=== PATIENT | male | born 1995 | race Caucasian/White ===

== ENCOUNTER 2022-07-02 13:51 | Emergency (ER) | payer SELFPAY ==
[2022-07-02 13:53] VITALS: BP 139/90; PULSE 110; RESP 16; TEMP 35.9; O2SAT 100
[2022-07-02 15:14] VITALS: BMI 20.9
--- NOTE | 2022-07-02 15:15 | EX.ED.DYSGE1 ---
HPI History of Present Illness Chief Complaint: Dizziness Narrative Narrative: 26-year-old male presenting with concern for dehydration. He states has been drinking fluids but just has not eaten anything in 2 and half days. He does not know why. He does not feel ill. He states he does not have any medical problems. He states that before coming he started to feel cramping in his hands and in his back. At that point he became very nauseous and vomited. Since then has been able to drink Gatorade. Does not have any abdominal pain or chest pain. He is a little bit lightheaded. PFSH PFSH Medical History no medical history Home Medications NK 07/02/22 [History Last Taken Unknown] Allergy/AdvReac Type Severity Reaction Status Date / Time No Known Allergies Allergy Verified 07/02/22 13:51 Social History Smoking Status: Never smoker ROS ROS ED Constitutional Constitutional ED: Denies chills, fever(s) or sweats Eyes Eyes: Denies blurry vision or change in vision ENT ENT ED: Denies ear pain or sore throat Cardiovascular Cardiovascular: Denies chest pain, palpitations or racing heartbeat Respiratory/Chest Respiratory/Chest: Denies cough, dyspnea or sputum Gastrointestinal Gastrointestinal: Denies abdominal pain, constipation, diarrhea, nausea or vomiting Genitourinary Genitourinary ED: Denies dysuria, hematuria or urinary frequency Musculoskeletal Musculoskeletal: Reports other Details: Muscle spasms ; Denies arthralgias or neck pain Integumentary Denies abscess, Abrasions or rash Neurologic Neurologic: Denies headache(s), paresthesias or weakness Psychiatric Psychiatric: Denies anxiety, depression, suicidal ideation or suicidal thoughts Endocrine Endocrinology: Denies polydipsia or polyuria EXAM Physical Exam Const Vital Signs: 07/02/22 13:53 07/02/22 15:15 07/02/22 15:19 Temperature 96.7 F L Temperature Source Temporal Pulse Rate 110 H Pulse Rate [Lying] 94 Pulse Rate [Sitting (for 1 minute prior to obtaining)] 98 Pulse Rate [Standing (for 1 minute prior to obtaining)] 119 H Respiratory Rate 16 Respiratory Effort Normal Non-Labored Respiratory Pattern Normal Blood Pressure 139/90 H Blood Pressure [Lying] 141/76 H Blood Pressure [Sitting (for 1 minute prior to obtaining)] 136/94 H Blood Pressure [Standing (for 1 minute prior to obtaining)] 131/106 H Blood Pressure Mean 106 Blood Pressure Mean [Lying] 97 Blood Pressure Mean [Sitting (for 1 minute prior to obtaining)] 108 Blood Pressure Mean [Standing (for 1 minute prior to obtaining)] 114 Pulse Ox 100 Oxygen Delivery Method Room Air 07/02/22 17:25 Temperature Temperature Source Pulse Rate Pulse Rate [Lying] Pulse Rate [Sitting (for 1 minute prior to obtaining)] Pulse Rate [Standing (for 1 minute prior to obtaining)] Respiratory Rate Respiratory Effort Respiratory Pattern Blood Pressure 120/64 Blood Pressure [Lying] Blood Pressure [Sitting (for 1 minute prior to obtaining)] Blood Pressure [Standing (for 1 minute prior to obtaining)] Blood Pressure Mean 82 Blood Pressure Mean [Lying] Blood Pressure Mean [Sitting (for 1 minute prior to obtaining)] Blood Pressure Mean [Standing (for 1 minute prior to obtaining)] Pulse Ox Oxygen Delivery Method Positive well nourished General Appearance ED: NAD; Negative for pallor HEENT Reports moist mucous membranes Eyes PERRL and EOMs intact bilaterally Resp normal respiratory effort and clear to auscultation bilaterally Cardio regular rate Rate: tachycardic GI normal to inspection, nondistended, normoactive bowel sounds Extremity normal to inspection General Extremety ED: Negative for edema or tenderness General Extremity: Negative for edema Neuro oriented x3 and CN's II-XII intact bilaterally Sensorium / Orientation: alert Psych mental status grossly normal Skin General Skin Exam: Negative for jaundice or pallor MDM MDM MDM Narrative Medical decision making narrative: Patient presenting with muscle spasms. He has not eaten in 2 and half days. He states he has been drinking fluids. Differential includes dehydration, electrolyte abnormalities. Orthostatic vitals will be obtained. CBC to assess white blood cell count, hemoglobin, platelets, differential. CMP to assess liver function, renal function, glucose, anion gap, electrolytes. Patient given 2 L of IV fluids. CBC shows a mild leukocytosis at 12.0. Hemoglobin hematocrit are stable. Platelets are normal. Creatinine is elevated at 1.32 today. GFR is normal. Patient given 2 L of IV fluids and on reevaluation he feels better. I recommended him that he eat and drink normally and not go days without eating. Stay hydrated. He acknowledged understanding of this. Discharged stable condition. Impression: 1. Dehydration 2. Muscle cramps Lab Data Attestation: I reviewed the patient's lab results. Labs: Laboratory Results - last 24 hr 07/02/22 07/02/22 15:25 15:25 WBC 12.0 H RBC 5.42 Hgb 15.7 Hct 46.6 MCV 86.0 MCH 29.0 MCHC 33.7 RDW Std Deviation 39.0 RDW Coeff of Barbie 12.6 Plt Count 271 MPV 10.2 Immature Gran % (Auto) 0.400 Neut % (Auto) 84.2 H Lymph % (Auto) 9.5 L [place] % (Auto) 5.3 Eos % (Auto) 0.3 Baso % (Auto) 0.3 Absolute Neuts (auto) 10.1 H Absolute Lymphs (auto) 1.14 Nucleated RBC % 0 Sodium 133 L Potassium 5.1 Chloride 99 Carbon Dioxide 24.0 Anion Gap 10 BUN 16 Creatinine 1.32 H Estim Creat Clear Calc 71.53 Est GFR (MDRD) Af Amer 83 Est GFR (MDRD) Non-Af 68 BUN/Creatinine Ratio 12.1 Glucose 100 Calcium 10.0 Total Bilirubin 1.20 H AST 55 H ALT 24 Alkaline Phosphatase 76 Total Protein 8.8 H Albumin 4.2 Globulin 4.6 H Albumin/Globulin Ratio 0.9 Discharge Plan Triage Chief Complaint: Dizziness ED Provider: Rishi Del Valle Dx/Rx/DC Orders Instructions: ED Dehydration (Adult), ED Hypotension, Orthostatic Prescriptions: No Action NK Primary Care Provider: Care Physician,No Primary Referrals: NOT,DEFINED [Non-Staff] - Disposition Disposition: Home, Self Care Discharge Date/Time: 07/02/22 18:01
[2022-07-02 15:19] VITALS: BP 131/106; BP 136/94; BP 141/76; PULSE 119; PULSE 94; PULSE 98
[2022-07-02] MEDS: 0.9% Normal Saline 1,000 ML 1000 ML IV ×2 (15:30→16:33)
[2022-07-02 15:34] LABS: Absolute Lymphocyte Count 1.14 X10^3/uL (0.83-4.51); Absolute Neutrophil Count 10.1 X10^3/uL (2.0-7.7); Basophil# 0.03 X10^3/uL; Basophil% 0.3 % (0-1); Eosinophil# 0.03 X10^3/uL; Eosinophils% 0.3 % (0-5); Hematocrit 46.6 % (40-54); Hemoglobin 15.7 g/dL (13.0-16.5); Lymphocyte # 1.14 X10^3/ul (0.83-4.51); Lymphocyte % 9.5 % (19-41); Mean Corp Hgb Conc 33.7 g/dL (32-36); Mean Platelet Vol. 10.2 fl (6.2-12.0); Monocyte# 0.63 X10^3/uL; Monocyte% 5.3 % (0-10); NRBC Flagged by Analyzer 0 % (0-5); Neutrophil # 10.08 X10^3/uL (2.7-7.7); Neutrophil % 84.2 % (47-70); Platelet Count 271 K/mm3 (150-450); RBC Distribution Width CV 12.6 % (11.6-14.6); Red Blood Count 5.42 M/mm3 (4.6-6.2)
[2022-07-02 15:55] LABS: ALB/GLOB Ratio 0.9 RATIO (0.9-2.4); AST(SGOT) 55 U/L (15-37); Alanine Aminotransfer ALT/SGPT 24 U/L (16-61); Albumin, Serum 4.2 g/dL (3.2-5.0); Alkaline Phosphatase 76 U/L (45-117); Anion Gap 10 (5-15); BUN 16 mg/dL (7-18); BUN/Creat Ratio 12.1 RATIO (10-20); Chloride 99 mmol/L (98-107); Creatinine, Serum 1.32 mg/dL (0.70-1.30); EST Glomerular Filtration Rate 68 mL/min (>60); Est Glom Filt Rate - Afr Amer 83 mL/min (>60); Estimated Creatinine Clearance 71.53 ml/min; Globulin 4.6 g/dL (2.2-4.2); Glucose 100 mg/dL (74-106); Potassium 5.1 mmol/L (3.5-5.1); Protein, Total 8.8 g/dL (6.4-8.2); Sodium Level 133 mmol/L (136-145)
[2022-07-02 17:25] VITALS: BP 120/64
== END 2022-07-02 18:01 | disposition home or self-care (01) ==
PROVIDERS: Emergency Provider Student in an Organized Health Care Education/Training Program; Visit Provider Student in an Organized Health Care Education/Training Program
DX: E86.0 Dehydration (principal); R25.2 Cramp and spasm
CPT/HCPCS: 80053; 85025; 99284; J7030; A4216

== ENCOUNTER 2024-06-08 04:54 | Emergency (ER) | payer SELFPAY ==
[2024-06-08 04:56] VITALS: BP 146/99; PULSE 105; RESP 20; TEMP 37.2; O2SAT 100; BMI 22.3
[2024-06-08 04:58] VITALS: BP 146/99; PULSE 102; RESP 20; TEMP 37.2; O2SAT 100
--- NOTE | 2024-06-08 05:08 | RAD_ITS ---
PROCEDURE: CHEST 1 VIEW (PORTABLE) 06/08/2024 REASON FOR EXAM: CHEST PAIN TECHNIQUE: Frontal view of the chest. COMPARISON: None. FINDINGS: The cardiac silhouette is within normal limits. No focal infiltrate or consolidation is seen within the lungs. There is no pneumothorax. There are no acute osseous abnormality is present. Deformity seen within the left clavicle likely due to old clavicular injury correlate clinically for site of pain. RAD/Chest 1 View (Portable) IMPRESSION: Left clavicular deformity likely due to old clavicle injury. If the patient is tender over the left clavicle acute injury can not be ruled out. Cross-sectional imaging may be helpful. No focal infiltrate or consolidation seen within the lungs. No pneumothorax. Reading Location: [id number]
--- NOTE | 2024-06-08 05:09 | EDS_ITS ---
HPI History of Present Illness Chief Complaint: Cold Sx Informant: patient Narrative Narrative: 28-year-old male presenting to the emergency room chief complaint of left-sided chest pain. Patient states that he has developed the sharp left-sided chest pain that is worse with movement and cough and touch. Feels better when he leans forward at times. Couple days ago he had some vomiting but it did not hurt him after he vomited. He states that he has been having some dental infections over the past 6 months but has been unable to see a dentist due to financial reasons. He states that they started hurting more yesterday. Today notes some swelling in his lymph nodes and wonders if he has developed some fluid in his chest as he wonders if the infection is spread down to his chest. Subjective fevers are noted. No diarrhea. PFSH [facility] Medical History Marijuana smoker Medical History no medical history Home Medications ?Medication ?Instructions ?Recorded ?Last Taken ?Type ibuprofen 600 mg tablet 600 mg PO Q6H PRN PRN pain # 20 06/08/24 Unknown Rx TABLETS penicillin V potassium 500 mg 500 mg PO 4X/DAY #28 tab s 06/08/24 Unknown Rx tablet Allergy/AdvReac Type Severity Reaction Status Date / Time No Known Allergies Allergy Verified 06/08/24 04:55 Family History no significant family his Surgical History no surgical history Social History Smoking Status: Current every day smoker tobacco type: e-cigarettes ROS ROS ED Constitutional Constitutional ED: Reports fever(s) and subjective; Denies chills or weight loss Eyes Eyes: Denies change in vision or diplopia ENT ENT ED: Reports other Details: Dental pain ; Denies ear pain, rhinorrhea or sore throat Cardiovascular Cardiovascular: Reports chest pain; Denies orthopnea, palpitations or racing heartbeat Respiratory/Chest Respiratory/Chest: Reports dyspnea; Denies cough or orthopnea Gastrointestinal Gastrointestinal: Reports vomiting; Denies abdominal pain, diarrhea or nausea Genitourinary Genitourinary ED: Denies dysuria, hematuria or urinary frequency Musculoskeletal Musculoskeletal: Denies arthralgias or myalgias Integumentary Denies abscess or rash Neurologic Neurologic: Denies headache(s) or weakness Psychiatric Psychiatric: Denies anxiety, depression, suicidal ideation or suicidal thoughts Endocrine Endocrinology: Denies polydipsia, polyphagia or polyuria Allergic/Immunologic Allergic/Immunologic ED: Denies mouth swelling, tongue swelling or urticaria EXAM Physical Exam Const Vital Signs: 06/08/24 04:56 06/08/24 04:58 06/08/24 04:58 Temperature 98.9 F 98.9 F Temperature Source Axillary Axillary Pulse Rate 105 H 102 H Respiratory Rate 20 H 20 H Respiratory Effort Short of Breath Labored Respiratory Pattern Tachypnea Blood Pressure 146/99 H 146/99 H Blood Pressure Mean 114 114 Pulse Ox 100 100 Oxygen Delivery Method Room Air Room Air 06/08/24 05:22 06/08/24 06:00 06/08/24 06:40 Temperature 98.5 F 98 F Temperature Source Oral Pulse Rate 86 73 84 Respiratory Rate 18 16 19 H Respiratory Effort Respiratory Pattern Blood Pressure 132/94 H 132/87 H 126/76 H Blood Pressure Mean 106 102 92 Pulse Ox 100 98 99 Oxygen Delivery Method Room Air Room Air Positive well nourished and well developed General Appearance ED: well developed HEENT Reports normocephalic, head/scalp atraumatic and moist mucous membranes HEENT Narrative: Multiple decayed teeth particularly in the molar region. There is no trismus no floor the mouth swelling. No obvious drainable dental abscess. No facial erythema or swelling. Eyes PERRL and EOMs intact bilaterally Neck no lymphadenopathy, supple and no JVD Chest Wall Chest Narrative: Tender palpation left lower anterior chest along the costochondral border Resp normal respiratory effort and clear to auscultation bilaterally Cardio regular rate, regular rhythm and no murmurs GI normal to inspection, nondistended, normoactive bowel sounds and non-tender Palpation: soft Back/Spine no CVA tenderness and normal ROM Extremity normal to inspection General Extremety ED: Negative for edema General Extremity: Negative for edema Neuro oriented x3 and CN's II-XII intact bilaterally Sensorium / Orientation: alert Motor Exam: strength 5/5 throughout Psych Mood & Affect: anxious and tearful; Negative for depressed Skin no rashes or lesions noted and no wounds MDM MDM MDM Narrative Medical decision making narrative: Differential diagnosis includes but not limited to dental abscess James's angina pneumonia pleural effusion acute coronary syndrome pulmonary embolism aortic dissection pleural effusion Patient's EKG shows a normal sinus rhythm at a rate of 90 bpm. White count is normal at 7.5 hemoglobin 14.6 platelet count 313. Normal D-dimer troponin less than 6 (greater then 8 hours of symptomology). Glucose noted to be 134. My independent interpretation a chest x-ray is no acute process. Clinically with the above workup and his physical exam I think is most likely chest wall pain. I can write for some penicillin and see if that helps his dental pain. Would recommend PCP establishment and follow-up as well as dentistry. History & Record Review Discussion w/independent historian: Patient Additional record(s) reviewed:: Prior ED visit and Prior labs Lab Data Attestation: I reviewed the patient's lab results. Labs: Laboratory Results - last 24 hr 06/08/24 05:20 WBC 7.5 RBC 5.05 Hgb 14.6 Hct 42.5 MCV 84.2 MCH 28.9 MCHC 34.4 RDW Std Deviation 38.1 RDW Coeff of Barbie 12.5 Plt Count 313 MPV 10.0 Immature Gran % (Auto) 0.300 Neut % (Auto) 62.5 Lymph % (Auto) 23.6 [place] % (Auto) 11.9 H Eos % (Auto) 1.3 Baso % (Auto) 0.4 Absolute Neuts (auto) 4.7 Absolute Lymphs (auto) 1.76 Nucleated RBC % 0 D-Dimer Quant (PE/DVT) 0.27 Sodium 135 Potassium 3.9 Chloride 98 Carbon Dioxide 22.3 Anion Gap 15 BUN 10 Creatinine 1.16 Estim Creat Clear Calc 85.21 Est GFR (MDRD) Non-Af 87 BUN/Creatinine Ratio 9.0 L Glucose 134 H Calcium 9.7 Troponin T High Sens < 6 Radiography Diagnostic Testing: Clinical Impression(s) from Imaging Studies Chest X-Ray 06/08/24 05:08 IMPRESSION: Left clavicular deformity likely due to old clavicle injury. If the patient is tender over the left clavicle acute injury can not be ruled out. Cross-sectional imaging may be helpful. No focal infiltrate or consolidation seen within the lungs. No pneumothorax. Reading Location: [facility] EKG Initial EKG: Attestation: I personally reviewed and interpreted this EKG as follows: Comments: Normal sinus rhythm ventricular rate of 90 bpm Discharge Plan Triage Chief Complaint: Cold Sx ED Provider: Hermelindo Berger Dx/Rx/DC Orders Clinical Impression: Dental caries, Chest pain Instructions: ED Chest Wall Pain, Costochondritis, ED Dental Cavity Prescriptions: New ibuprofen 600 mg tablet 600 mg PO Q6H PRN PRN (Reason: pain) Qty: 20 0RF penicillin V potassium 500 mg tablet 500 mg PO 4X/DAY Qty: 28 0RF Primary Care Provider: Care Physician,No Primary Referrals: Geraldo Ramos MD [Med Staff - Active Staff] - (for primary care) Care Physician,No Primary [Primary Care Provider] - Activity Restrictions/Additional Instructions: Please follow-up with dentistry as able Print Language: Divehi Disposition Disposition: Home, Self Care Discharge Date/Time: 06/08/24 06:41
[2024-06-08] MEDS: Ketorolac 30 MG/ML Syringe IV (05:20)
[2024-06-08 05:22] VITALS: BP 132/94; PULSE 86; RESP 18; O2SAT 100
[2024-06-08 05:52] LABS: Anion Gap 15 (5-15); BUN 10 mg/dL (4-19); Calcium,Total 9.7 mg/dL (7.6-11.0); Carbon Dioxide 22.3 mmol/L (21.0-32.0); Chloride 98 mmol/L (98-108); Creatinine, Serum 1.16 mg/dL (0.70-1.20); EST Glomerular Filtration Rate 87 (>60); Estimated Creatinine Clearance 85.21 ml/min (50-250); Glucose 134 mg/dL (70-99); Potassium 3.9 mmol/L (3.3-5.1); Sodium Level 135 mmol/L (133-145); Troponin T High Sensitivity < 6 ng/L (<=22)
[2024-06-08 06:00] VITALS: BP 132/87; PULSE 73; RESP 16; TEMP 36.9; O2SAT 98
[2024-06-08 06:00] LABS: Absolute Lymphocyte Count 1.76 X10^3/uL (0.83-4.51); Absolute Neutrophil Count 4.7 X10^3/uL (2.0-7.7); Basophil# 0.03 X10^3/uL; Basophil% 0.4 % (0-1); Eosinophils% 1.3 % (0-5); Hematocrit 42.5 % (40-54); Hemoglobin 14.6 g/dL (13.0-16.5); Lymphocyte # 1.76 X10^3/ul (0.83-4.51); Lymphocyte % 23.6 % (19-41); Mean Corp Hgb Conc 34.4 g/dL (32-36); Mean Corpuscular Hgb 28.9 pg (27.0-32.0); Mean Corpuscular Volume 84.2 fL (80-94); Monocyte# 0.89 X10^3/uL; Monocyte% 11.9 % (0-10); NRBC Flagged by Analyzer 0 % (0-5); Neutrophil # 4.65 X10^3/uL (2.7-7.7); Neutrophil % 62.5 % (47-70); Platelet Count 313 K/mm3 (150-450); RBC Distribution Width CV 12.5 % (11.6-14.6); RBC Distribution Width SD 38.1 fl (35.1-43.9); Red Blood Count 5.05 M/mm3 (4.6-6.2); White Blood Count 7.5 K/mm3 (4.4-11.0)
[2024-06-08 06:29] LABS: D-Dimer Quantitative (DVT/PE) 0.27 FEU/ug/m (0.27-0.49)
[2024-06-08 06:40] VITALS: BP 126/76; PULSE 84; RESP 19; TEMP 36.6; O2SAT 99
== END 2024-06-08 06:41 | disposition home or self-care (01) ==
PROVIDERS: Emergency Provider Emergency Medicine; Visit Provider Emergency Medicine
DX: R07.9 Chest pain, unspecified (principal); K02.9 Dental caries, unspecified; F12.90 Cannabis use, unspecified, uncomplicated; F17.290 Nicotine dependence, other tobacco product, uncomplicated
CPT/HCPCS: 71045; 80048; 84484; 85025; 85379; 93005; 96374; 99284; A4216

== ENCOUNTER 2024-07-12 01:58 | Emergency (ER) | payer SELFPAY ==
[2024-07-12 01:59] VITALS: BP 139/105; PULSE 110; RESP 18; TEMP 36.7; O2SAT 100
--- NOTE | 2024-07-12 02:00 | EDS_ITS ---
HPI History of Present Illness Chief Complaint: Rash [facility] Medical History Marijuana smoker Medical History no medical history Home Medications ?Medication ?Instructions ?Recorded ?Last Taken ?Type amoxicillin 875 mg-potassium 1 tab PO BID 7 days #14 t abs 07/12/24 Unknown Rx clavulanate 125 mg tablet Allergy/AdvReac Type Severity Reaction Status Date / Time No Known Allergies Allergy Verified 07/12/24 01:59 Family History no significant family his Surgical History no surgical history Social History Smoking Status: Current every day smoker tobacco type: e-cigarettes EXAM Physical Exam Const Vital Signs: 07/12/24 01:59 07/12/24 02:03 Temperature 98.0 F Temperature Source Oral Pulse Rate 110 H Respiratory Rate 18 Respiratory Effort Normal Non-Labored Respiratory Pattern Normal Blood Pressure 139/105 H Blood Pressure Mean 116 Pulse Ox 100 Oxygen Delivery Method Room Air [facility] Medical decision making narrative: HISTORY OF PRESENT ILLNESS: Chief complaint: Rash 28-year-old male presents with concern for dental pain and a rash on his face. Notes is causing lightheadedness. Patient notes he had a dental infection for quite a while. Notes paresthesias. REVIEW OF SYSTEMS: Pertinent positives: Dental pain/rash Pertinent negatives: Difficulty swallowing PHYSICAL EXAM: Nursing triage notes reviewed, Vital signs reviewed Constitutional: please see mdm HENT: MMM, significant dental caries, poor oral dentition, no obvious palpable abscess. Uvula midline, no exudates on tonsils, no pooling secretions Eyes: Pupils equal round and reactive to light, Extraocular muscles intact Neck: No stridor, no JVD, full neck ROM Lungs: Clear to auscultation, No wheezing or rales. No increased work of breathing, no conversational dyspnea, no accessory muscle use, no nasal flaring. No respiratory distress noted Heart: Regular rate and rhythm, No murmurs, No rubs and No gallops, 2+ distal pulses (radial, femoral, posterior tibial) in all extremities Neuro: No new focal neurological deficits, cranial nerves II through XII intact, 5/5 strength in all present extremities. Intact sensation to light touch in all present extremities, 2+ reflexes bilateral patella tendons. Patient ambulated without ataxia. Skin: No rash or lesions noted MEDICAL DECISION MAKING: Chief Complaint: please see HPI External records reviewed: Reviewed prior ED visits Factors affecting care: none Social determinants of health: History of cocaine use, marijuana abuse History obtained from others: none Consults: none [facility] Narrative: The patient was initially hemodynamically stable, afebrile and nontoxic- appearing. Exam consistent with poor dentition. No sign of dental abscess on initial exam. Will give prophylactic antibiotics, pain medication and dental resources. The patient and/or family, caregivers express understanding. The patient and/or family, caregivers agrees with the plan. Shared decision making: I will have a discussion with the patient and or visitors regarding risk/benefits of further testing or admission. They will be made aware of of the risk/benefits inherent in this decision they will be given the opportunity to voice understanding. Total critical care time today provided was at least 0 minutes. This excludes separately billable procedures. Critical care time (if documented) is secondary to the patient having high probability of clinically significant/life threatening deterioration in the patient's condition which required my urgent intervention. Impression: 1. Dental pain 2. Dental caries 3. History of substance abuse Dispo: Discharge home This note was generated with [employer] dictation software. It may contain incorrect words, spelling, and punctuation that were not noted in review of the chart prior to signing. Discharge Plan Triage Chief Complaint: Rash ED Provider: Derrek Stacy Dx/Rx/DC Orders Instructions: ED Dental Cavity Prescriptions: New amoxicillin-pot clavulanate 875-125 mg tablet 1 tab PO BID 7 Days Qty: 14 0RF Primary Care Provider: Care Physician,No Primary Referrals: Geraldo Ramos MD [Med Staff - Active Staff] - Activity Restrictions/Additional Instructions: Thank you for trusting us with your care today! Please take Tylenol (2 pills, 650 mg), ibuprofen (2 pills, 400 mg) every 6 hours as needed for pain and fever control. Please take antibiotics until course is complete. Please return to the emergency department if your symptoms change or worsen. Please follow with your primary care physician for further outpatient evaluation and management. Print Language: Armenian Disposition Disposition: Home, Self Care
[2024-07-12] MEDS: Acetaminophen 325 MG Tablet 650 MG PO (02:49)
[2024-07-12] MEDS: Amox/Clavulanate 875 MG Tablet PO (02:49)
[2024-07-12] MEDS: Ibuprofen 200 MG Tablet 400 MG PO (02:50)
== END 2024-07-12 02:55 | disposition home or self-care (01) ==
PROVIDERS: Emergency Provider Emergency Medicine; Visit Provider Emergency Medicine
DX: K02.9 Dental caries, unspecified (principal); K08.89 Other specified disorders of teeth and supporting structures; R42 Dizziness and giddiness; F12.90 Cannabis use, unspecified, uncomplicated; F17.290 Nicotine dependence, other tobacco product, uncomplicated; R21 Rash and other nonspecific skin eruption
CPT/HCPCS: 99284

== ENCOUNTER → 2025-02-13 | Outpatient (CLI) | payer SELFPAY ==
--- NOTE | 2025-02-13 12:48 | RAD_ITS ---
PROCEDURE: FOOT MIN 3 VIEWS 02/13/2025 REASON FOR EXAM: PAIN TECHNIQUE: Procedure Code: RADFO Modality: DX Procedure: FOOT MIN 3 VIEWS COMPARISON: None FINDINGS: There is an acute nondisplaced fracture in the proximal aspect of the 5th proximal phalanx with soft tissue swelling. There is a metallic foreign body projecting dorsal to the 3rd metatarsal head. No other demonstrated fracture, joint spaces are well-preserved RAD/Foot min 3 Views IMPRESSION: Acute nondisplaced fracture in the proximal aspect of the proximal 5th phalanx with soft tissue swelling Metallic foreign body projects dorsal to the 3rd metatarsal head Reading Location: [id number]
== END | disposition home or self-care (01) ==
LOC: MTRAD 12:48
PROVIDERS: Referring Provider Physician Assistant; Visit Provider Physician Assistant
DX: M79.672 Pain in left foot (principal)
CPT/HCPCS: 73630